=== PATIENT | male | born 1975 | race Caucasian/White ===

== ENCOUNTER 2023-05-24 08:09 | Emergency (ER) | payer OTHER, SELFPAY ==
[2023-05-24 08:21] VITALS: BP 133/85; PULSE 81; RESP 16; TEMP 36.7; O2SAT 100
--- NOTE | 2023-05-24 08:33 | ED.EYEPROB ---
HPI - Eye Problem General Chief complaint: Eye Problems Stated complaint: Eyes Irritation Time Seen by Provider: 05/24/23 08:27 Source: patient and RN notes reviewed Mode of arrival: ambulatory Limitations: no limitations History of Present Illness HPI Narrative: Patient presents today complaining of a 2 day history of right upper eyelid pain and swelling with drainage that started this morning. Denies vision changes. He has been using warm compresses and taking ibuprofen with some relief. He does wear contacts, but has not had them in in a few weeks because he is running out. Related Data Allergies Allergy/AdvReac Type Severity Reaction Status Date / Time No Known Allergies Allergy Verified 05/24/23 08:22 Review of Systems Review of Systems: CONSTITUTIONAL: Denies body aches, fever, chills, or sweats. EYES: Denies visual changes, redness. + right upper eyelid swelling and pain ENT: Denies rhinorrhea, congestion, sore throat, or otalgia. CARDIOVASCULAR: Denies chest pain, palpitations, or edema. RESPIRATORY: Denies cough or dyspnea. GASTROINTESTINAL: Denies abdominal pain, nausea, vomiting, or diarrhea. GENITOURINARY: Denies dysuria or hematuria. SKIN: Denies rash, itching, or wounds. MUSCULOSKELETAL: Denies back pain, joint pain, or myalgia. NEUROLOGIC: Denies headache, numbness, tingling, or weakness. PSYCH: Denies depression or anxiety. PMFSH Comments At time of signature, I have reviewed and agree with nursing past medical, surgical, social and family history unless otherwise noted. Please see nursing chart for further information. There is no relevant family history pertinent to the presenting complaint Exam Narrative: GENERAL: Well-appearing, well-nourished, and in no acute distress. HEAD: Normocephalic, atraumatic. EYES: EOMI. PERRL. Left eye normal. Right upper eyelid with mild swelling and redness. Pustule noted on the inner aspect of the right upper eyelid. No active drainage noted. ENT: Mucous membranes pink and moist. NECK: Normal AROM. CHEST: No respiratory distress. EXTREMITIES: Normal range of motion. No edema. SKIN: Warm, dry, no rash. Capillary refill normal. Normal skin turgor. NEURO: No focal deficits. Alert and oriented x3. Gait steady. PSYCH: Normal affect. No signs of depression or anxiety. Course Course Level of Care: Express Care Visit Vital Signs Vital signs: Vital Signs Temperature 98.0 F 05/24/23 08:21 Pulse Rate 81 05/24/23 08:21 Respiratory Rate 16 05/24/23 08:21 Blood Pressure 133/85 05/24/23 08:21 Pulse Oximetry 100 05/24/23 08:21 Oxygen Delivery Room Air 05/24/23 08:21 Temperature 98.0 F 05/24/23 08:21 Pulse Rate 81 05/24/23 08:21 Respiratory Rate 16 05/24/23 08:21 Blood Pressure 133/85 05/24/23 08:21 Pulse Oximetry 100 05/24/23 08:21 Oxygen Delivery Room Air 05/24/23 08:21 Reviewed. Pt has been instructed to follow up with his PCP regarding his elevated blood pressure today. MDM - Eye Problem MDM Narrative Medical decision making narrative: Exam consistent with stye. Will treat with prescription for ciprofloxacin drops. Patient will continue with ibuprofen and warm compresses. Anticipatory guidance given. Differential Diagnosis Differential diagnosis: Likely corneal abrasion, conjunctivitis and other (Stye) Critical Care Time Critical Care Time Critical Care Time: No Discharge Plan Discharge Clinical Impression: Hordeolum externum of right upper eyelid Patient Disposition: Home, Self-Care Condition: Stable Instructions: Stye (ED) Additional Instructions: You have developed a stye in your right upper eyelid. Continue warm compresses and ibuprofen. Use eyedrops as directed. Follow-up with an eye doctor in 3 days if you do not feel like your symptoms are improving. Your blood pressure was elevated above 120/80 today at Urgent Care. This puts you above the threshold for follow up.
== END 2023-05-24 08:39 | disposition home or self-care (01) ==
PROVIDERS: Emergency Provider Nurse Practitioner; PCP Internal Medicine Geriatric Medicine
DX: H00.011 Hordeolum externum right upper eyelid (principal)
CPT/HCPCS: 99213; G0463